=== PATIENT | female | born 1980 | race Caucasian/White ===

== ENCOUNTER → 2023-10-27 | Outpatient (CLI) | payer OTHER ==
--- NOTE | 2023-10-27 14:46 | P.PAINPG ---
PQRS Measure Charge Sheet Comment: HISTORY OF PRESENT ILLNESS: A 43 yr old female as a referral from Dr Cope presents today w severe and chronic head and neck pain > 4 yrs secondary to occipital neuralgia & cervicogenic MARQUEZ for evaluation. Pt states pain level is provoked at 6 /10 in intensity, constant, localized in the upper cervical spine, predominantly axial, stinging in character w occasional shooting pain towards the sides of head behind the ears. Pain is provoked by lifting or driving. Pain is alleviated by chiropractic treatments semi monthly w last visit in , physician guided home exercises/ stretches [ ] times weekly since [ ], medications (Naproxen), topical BioFreezel Gel, repositioning and rest . PMH: OA PSH: LLE Venous Ablation, Partial Hysterectomy (2021), Tubal Ligation (2011) SH: Hx of tobacco use, Rare ETOH use, No illicit drug use FH: Mo- Cardiomegaly, COPD. Fa- CAD, DM All: See list Meds: See list REVIEW OF ORGAN SYSTEMS: CONSTITUTIONAL: No fevers or chills. No recent weight loss. NEUROLOGICAL: + numbness and tingling along the distal extremities. No seizure disorders or headaches. MUSCULOSKELETAL: + pain PSYCHIATRIC: Denies current depression or suicidal thoughts. Physical Examinations : Constitutional : Cooperative , not in acute distress . Neurologic : Cranial nerve II to XII intact. No focal neurological deficits. Psychiatric : alert & oriented x 3. Matching mood & appropriate affect. Judgment & insight intact. Musculoskeletal : Cervical Spine +BL JAGUAR TTP Motor strength in the deltoid and biceps: Normal right side. Normal Left side Motor strength biceps and the wrist extensors: Normal right side . Normal left side Motor strength in the triceps muscle: Normal right side. Normal left side Deep tendon reflexes: Normal at the biceps. Normal at Brachioradialis. Normal at triceps Vertebral body tenderness to deep palpation over Cervical facet loading test: positive bilaterally Spurling test: positive bilaterally Neck distraction test: positive bilaterally Karen sign: positive bilaterally Lumbar spine Motor strength lower extremities ,thigh and legs 5/5 Right side , 5/5 Left side Deep tendon reflexes : Normal Knee Jerk. Normal Ankle Jerk Vertebral body tenderness over [place]renas Test positive Lumbar facet Loading Test: positive Right / positive Left Range of motion of the lumbar spine Flexion 30 degrees, extension 10 degrees Straight Leg Raise test: Left/ Right positive at degrees Bernard test: positive right / positive left. Severe tenderness over the Sacroiliac joint on the Right / Left sides Gaenslen test: positive bilaterally Seated flexion test: positive bilaterally. Sacral spine : Severe tenderness over the Sacroiliac joint: right side / left side Range of motion: Flexion of the lumbar spine <60 degrees Range of motion: Extension of the lumbar spine <20 degrees Gaenslen's Test positive Bernard test: positive right side / left side Thigh Thrust Test Sacral Thrust Test Imaging: MRI non contrast of the brain from 12/02/22 reviewed MRI non contrast of the cervical spine from 07/21/23 reviewed Assessment/ Plan : Occipital Neuralgia, Cervicogenic MARQUEZ Recommendation of BL JAGUAR #1. May need a series of injections for optimal pain relief. Risks, benefits of procedure discussed and patient verbalized understanding. Admits to anti- coagulant use or medical history of diabetes. Protocol for discontinuation/ continuation of medications cassy procedure discussed. All questions answered. I have spent greater than 30 minutes on patient care today. Dr Cole was available by phone for the evaluation of this patient. The time was used to review the medical records including relevant urine studies and Prescription history (MAPs), review of the available imaging, evaluation and examination of the patient, coordination of care with the medical staff and if applicable referring physicians, as well as creation of the medical record Controlled Substance Measures - Controlled Substance Measures Is patient prescribed a controlled substance at discharge?: No
[2023-10-27 14:51] VITALS: BP 115/77; PULSE 67; RESP 16
== END ==
LOC: PNWHC3 13:59
PROVIDERS: ATTEND Specialist
DX: M54.81 Occipital neuralgia (principal); G44.86 Cervicogenic headache; Z87.891 Personal history of nicotine dependence
CPT/HCPCS: 99202

== ENCOUNTER 2023-11-06 11:16 | Day surgery (SDC) | payer OTHER ==
[~2023-11-06 11:16] MED LIST: LACTATED RINGERS 1,000 ML IV SCH
[2023-11-06 11:47] VITALS: RESP 16; TEMP 98.1
[2023-11-06] MEDS ORDERED: ROPIVACAINE 5MG/ML 20ML VIAL ONE (12:27)
[2023-11-06] MEDS ORDERED: methylPREDNISolone ACETATE 40 MG/ML 1 ML VIAL ONE (12:27)
--- NOTE | 2023-11-06 12:32 | P.PCN ---
Date of Procedure: 11/06/23 Procedure(s) Performed: Preoperative diagnoses= 1- Greater occipital neuralgia Postoperative diagnoses= 1-greater occipital neuralgia Procedure= Bilateral Greater occipital nerve block Anesthesia= none . Estimated blood loss=minimal. Procedure indication= the patient had a history of severe chronic neck pain ,and headache, diagnosed with occipital neuralgia exam was positive for severe tenderness over the occipital nerve bilaterally, she will be a good candidate occipital nerve block, patient failed conservative management Procedure description= the patient was seen and identified in the preoperative holding area, risks and benefits and alternative of the procedure and possible complications discussed with the patient, and he agreed with the preceding, patient signed the consent, an IV was started, and vital signs were monitored and were stable throughout the procedure, patient was placed in the sitting position or table and the neck area was prepped and draped with a sterile fashion, vital signs were closely monitored during the procedure, 25-gauge needle advanced 1 inch lateral to the occipital protuberance on the right side, at the location of the right occipital nerve , then after negative aspiration for heme and CSF and there was no paresthesia during the injection, 6 ml of Robivacaine 0.5% and 20 mg of Depo-Medrol injected after negative aspiration, the needle removed, and the entire same procedure was repeated for the left Greater occipital nerve. Patient tolerated the procedure well without any complication, The patient returned to supine position after the back was cleaned and a Band- Aid applied, the patient transported to recovery room in stable condition and he was monitored for 30 minutes before he was discharged home and then patient was reexamined before going home and patient was discharged in stable condition and patient will follow up with the pain clinic in a few weeks.
[2023-11-06 14:01] VITALS: BP 119/75; PULSE 80
== END 2023-11-06 13:50 | disposition home or self-care (01) ==
LOC: ORPAIN 11:16
PROVIDERS: ATTEND Specialist
DX: M54.81 Occipital neuralgia (principal); Z88.1 Allergy status to other antibiotic agents; Z91.041 Radiographic dye allergy status; Z88.8 Allergy status to other drugs, medicaments and biological substances
CPT/HCPCS: 81025; 64405; J2795; J1010

== ENCOUNTER 2023-11-06 14:48 | Emergency (ER) | payer OTHER ==
[2023-11-06 14:59] VITALS: BP 135/90; PULSE 77; RESP 18; TEMP 97.9
--- NOTE | 2023-11-06 15:04 | ED ---
Neuro HPI - General Source: patient, RN notes reviewed Mode of arrival: ambulatory Limitations: no limitations <Jocelyn Tellez - Last Filed: 11/06/23 17:45> - History of Present Illness Is the patient presenting with stroke symptoms?: Yes <Silviano Anderson - Last Filed: 11/12/23 08:00> - General Chief Complaint: Neuro Symptoms/Deficit Stated Complaint: reaction to medication Time Seen by Provider: 11/06/23 15:02 - History of Present Illness Initial Comments: Quick note: 43-year-old female presented to the ER with a chief complaint of difficulty speaking and swallowing. Patient underwent a cervical nerve block today around 1 PM. She states after 10 minutes in recovery she had difficulty swallowing and states that she started to stutter her words. She reports she is allergic to steroids but not the medication that was injected. She contacted her neurologist who advised her to come to the ER for evaluation. (Jocelyn Tellez) - Related Data Home Medications: Home Medications Medication Instructions Recorded Confirmed Naproxen 375 mg PO DAILY 11/05/23 11/06/23 Allergies/Adverse Reactions: Allergies Allergy/AdvReac Type Severity Reaction Status Date / Time acetaminophen [From [place]] Allergy Rash/Hives Verified 11/06/23 14:59 hydrocodone [From [place]] Allergy Rash/Hives Verified 11/06/23 14:59 latex Allergy Rash/Hives Verified 11/06/23 14:59 meperidine [From Demerol] Allergy Rash/Hives Verified 11/06/23 14:59 methylprednisolone Allergy Rash/Hives Verified 11/06/23 14:59 [From Medrol] Review of Systems ROS Other: All systems not noted in ROS Statement are negative. <Jocelyn Tellez - Last Filed: 11/06/23 17:45> ROS Other: All systems not noted in ROS Statement are negative. <Silviano Anderson - Last Filed: 11/12/23 08:00> ROS Statement: Those systems with pertinent positive or pertinent negative responses have been documented in the HPI. General Exam Limitations: no limitations <Jocelyn Tellez - Last Filed: 11/06/23 17:45> - General Exam Comments Initial Comments: Visual Physical Exam Vital signs reviewed General: Well-appearing, nontoxic, no acute distress. Patient is stuttering words Head: Normocephalic, atraumatic Eyes: PERRLA, EOMI ENT: Airway patent Chest: Nonlabored breathing Skin: No visual rash, normal skin tone Neuro: Alert and oriented 3 Musculoskeletal: No gross abnormalities (Jocelyn Tellez) Stroke MDM - Lab Data Result diagrams: 11/06/23 15:07 11/06/23 15:07 <Jocelyn Tellez - Last Filed: 11/06/23 17:45> - Lab Data Result diagrams: 11/06/23 15:07 11/06/23 15:07 <Silviano Anderson - Last Filed: 11/12/23 08:00> - Lab Data Lab Results 11/06/23 11/06/23 Range/Units 15:07 15:07 WBC 5.9 (3.8-10.6) k/uL RBC 4.42 (3.80-5.40) m/uL Hgb 13.2 (11.4-16.0) gm/dL Hct 41.0 (34.0-46.0) % MCV 92.8 (80.0-100.0) fL MCH 29.8 (25.0-35.0) pg MCHC 32.1 (31.0-37.0) g/dL RDW 13.1 (11.5-15.5) % Plt Count 270 (150-450) k/uL MPV 8.7 Neutrophils % 69 % Lymphocytes % 23 % Monocytes % 5 % Eosinophils % 1 % Basophils % 1 % Neutrophils # 4.0 (1.3-7.7) k/uL Lymphocytes # 1.4 (1.0-4.8) k/uL Monocytes # 0.3 (0-1.0) k/uL Eosinophils # 0.0 (0-0.7) k/uL Basophils # 0.0 (0-0.2) k/uL Sodium 137 (137-145) mmol/L Potassium 3.8 (3.5-5.1) mmol/L Chloride 108 H (98-107) mmol/L Carbon Dioxide 24 (22-30) mmol/L Anion Gap 5 mmol/L BUN 7 (7-17) mg/dL Creatinine 0.64 (0.52-1.04) mg/dL Est GFR (CKD-EPI)AfAm >90 (>60 ml/min/1.73 sqM) Est GFR (CKD-EPI)NonAf >90 (>60 ml/min/1.73 sqM) Glucose 95 (74-99) mg/dL Calcium 9.1 (8.4-10.2) mg/dL Total Bilirubin 0.8 (0.2-1.3) mg/dL AST 20 (14-36) U/L ALT 11 (4-34) U/L Alkaline Phosphatase 77 (38-126) U/L Total Protein 7.1 (6.3-8.2) g/dL Albumin 4.4 (3.5-5.0) g/dL - Medical Decision Making I performed the quick note portion of this chart. 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 neck pain and back pain History of Any Multi-Drug Resistant Organisms: None Reported Past Surgical History: Tubal Ligation Additional Past Surgical History / Comment(s): cervix removed, colposcies, venous ablation for varicose veins left leg Past Anesthesia/Blood Transfusion Reactions: No Reported Reaction Additional Past Anesthesia/Blood Transfusion Reaction / Comment(s): takes longer to wake up Past Psychological History: No Psychological Hx Reported Smoking Status: Never smoker - Past Family History Mother Family Medical History: Deep Vein Thrombosis (DVT) <Jocelyn Tellez - Last Filed: 11/06/23 17:45> Course Vital Signs 11/06/23 14:55 Temperature 97.9 F Pulse Rate 77 Respiratory 18 Rate Blood Pressure 135/90 O2 Sat by Pulse 99 Oximetry Disposition <Jocelyn Tellez - Last Filed: 11/06/23 17:45> <Silviano Anderson - Last Filed: 11/12/23 08:00> Clinical Impression: Dysphagia Disposition: LEFT AGAINST MEDICAL ADVICE Referrals: Cristopher Avila DO [Primary Care Provider] - 1-2 days
[2023-11-06 15:22] LABS: Basophils % (A) 1 %; Eosinophils % (A) 1 %; HGB 13.2 gm/dL (11.4-16.0); Lymphocytes # (A) 1.4 k/uL (1.0-4.8); Lymphocytes % (A) 23 %; MCH 29.8 pg (25.0-35.0); MCHC 32.1 g/dL (31.0-37.0); MCV 92.8 fL (80.0-100.0); Mean Platelet Volume 8.7; Monocytes # (A) 0.3 k/uL (0-1.0); Monocytes % (A) 5 %; Neutrophils % (A) 69 %; Platelet Count 270 k/uL (150-450); RBC 4.42 m/uL (3.80-5.40); RDW 13.1 % (11.5-15.5); WBC 5.9 k/uL (3.8-10.6)
[2023-11-06 15:31] LABS: ALT 11 U/L (4-34); AST 20 U/L (14-36); African American GFR (CKD) >90 (>60 ml/min/1.73 sqM); Albumin 4.4 g/dL (3.5-5.0); Alkaline Phosphatase 77 U/L (38-126); Anion Gap 5 mmol/L; Blood Urea Nitrogen 7 mg/dL (7-17); Calcium 9.1 mg/dL (8.4-10.2); Carbon Dioxide 24 mmol/L (22-30); Chloride 108 mmol/L (98-107); Glucose 95 mg/dL (74-99); Non-African American GFR(CKD) >90 (>60 ml/min/1.73 sqM); Potassium 3.8 mmol/L (3.5-5.1); Sodium 137 mmol/L (137-145); Total Bilirubin 0.8 mg/dL (0.2-1.3); Total Protein 7.1 g/dL (6.3-8.2)
== END 2023-11-06 17:42 | disposition left against medical advice (07) ==
LOC: EC 14:48
DX: R13.10 Dysphagia, unspecified (principal); T38.0X5A Adverse effect of glucocorticoids and synthetic analogues, initial encounter; Z88.5 Allergy status to narcotic agent; Z91.040 Latex allergy status; Z88.8 Allergy status to other drugs, medicaments and biological substances; Z53.29 Procedure and treatment not carried out because of patient's decision for other reasons
CPT/HCPCS: 36415; 80053; 85025; 93005; 99283